=== PATIENT | male | born 1975 | race Caucasian/White ===

== ENCOUNTER 2021-06-18 15:38 | Emergency (ER) | payer BC, SELFPAY ==
[2021-06-18 15:39] VITALS: BP 135/96; PULSE 112; RESP 26; TEMP 38.4; O2SAT 95; BMI 47.7
[2021-06-18 15:40] VITALS: BMI 47.7
--- NOTE | 2021-06-18 15:41 | XR_ITS ---
PROCEDURE: XR CHEST PORTABLE CLINICAL HISTORY: SOB COMPARISON: No exams were available for comparison FINDINGS: There are low lung volumes. There is mild cardiomegaly without failure. Faint increased density is present in right mid to lower lung laterally some of which may be due to overlying ribs and chest wall. Cannot exclude patchy area of infiltrate. Upright PA and lateral chest may provide further evaluation. No acute bony abnormalities. IMPRESSION: Low lung volumes with possible right sided pneumonia Dictated by: Preston Acosta MD 06/18/2021 16:04 Preston Acosta MD in [place] 06/18/2021 16:04
--- NOTE | 2021-06-18 15:52 | [facility].EDGENADL ---
ED Disposition Clinical Impression: COVID Disposition: Home, Self-Care Condition on Discharge: Good Instructions: DI for COVID-19 (Suspected or Confirmed ) Additional Instructions: Antibiotic as directed. Anticipate a phone call to establish care appointment for antibody infusion. Follow-up with PCP in 2 to 3 days. Return to emergency department chest pain, shortness of breath. Prescriptions: Azithromycin [Zithromax 250mg tab] 250 mg PO DIRECTED #6 tab Transmission Status: Pending to [facility] Referrals: Provider,Referral, [Primary Care Provider] - 3 days Time of Disposition: 16:57 - Critical Care Critical Care Time: No Attestation: On 06/18/21, the high probability of a clinically significant, sudden or life threatening deterioration of the following system(s) required my full and direct attention, intervention and personal management. The time I documented below is in addition to time spent performing reported procedures but includes the following listed in this critical care notation. Medical Decision Making - Medical Records Medical records reviewed: Yes: I reviewed the patient's medical records. - Shahid Inquiry Pt receiving controlled substance: No Vital Signs: 06/18/21 15:39 Temperature 101.1 F H Temperature Source Oral Pulse Rate [Radial] 112 H Respiratory Rate 26 H Blood Pressure [Right Radial Artery] 135/96 H Blood Pressure Mean [Right Radial Artery] 109 Blood Pressure Position [Right Radial Artery] Sitting 02 Sat by Pulse Oximetry 95 Oxygen Delivery Method Room Air - Lab Data Lab results reviewed: Yes: I reviewed the patient's lab results. Lab Results 06/18/21 15:54: WBC 3.9 L, RBC 5.34, Hgb 15.3, Hct 46.0, MCV 86.1, MCH 28.6, MCHC 33.2, RDW 13.8, Plt Count 203, MPV 9.0, Neut % (Auto) 69.5, Lymph % (Auto) 20.4, [place] % (Auto) 8.3, Eos % (Auto) 0.4, Baso % (Auto) 1.4, Neut # (Auto) 2.7, Lymph # (Auto) 0.8, [place] # (Auto) 0.3, Eos # (Auto) 0.0, Baso # (Auto) 0.1 06/18/21 15:54: Sodium 137, Potassium 3.6, Chloride 101, Carbon Dioxide 31 H, Anion Gap 8.6, BUN 10, Creatinine 0.80, Estimated Creat Clear 106, Estimated GFR 103, Est GFR ( Amer) 125, Glucose 120 H, Calcium 8.2 L, Total Bilirubin 1.1, AST 121 H, ALT 77, Alkaline Phosphatase 165 H, Troponin I < 0.01, Total Protein 6.8, Albumin 3.6, Globulin 3.2, Albumin/Globulin Ratio 1.1 Result diagrams: 06/18/21 15:54 06/18/21 15:54 Orders (Tests/Meds): ED MEDICATIONS Discontinued Medications Generic Name Dose Route Start Last Admin Trade Name Freq PRN Reason Stop Dose Admin Acetaminophen 1,000 mg 06/18/21 15:42 06/18/21 15:57 Acetaminophen 500mg Tab PO 06/18/21 15:43 1,000 mg ONCE ONE Administration Sodium Chloride 1,000 mls @ 999 mls/hr 06/18/21 15:45 06/18/21 15:57 Sod Chlor 0.9% 1000ml Bag IV 06/18/21 16:45 999 mls/hr .[id number] WARREN Administration ORDERS Category Date Time Status Troponin I Q3H Lab 06/18/21 18:45 Ordered Troponin I Q3H Lab 06/18/21 21:45 Ordered - Radiology Data #1 Image(s): Chest Image Reviewed: Yes I have reviewed radiologist's interpretation Preliminary Findings: Abnormal Possible right-sided pneumonia Medical Decision Narrative: 46yo M evaluated for Covid. Patient no acute distress on initial evaluation. Sickle exam is unremarkable. Laboratory studies are consistent with Covid and that the patient has leukopenia, mild increase in liver enzymes. Chest x-ray shows possible right-sided pneumonia. We will go and cover the patient with azithromycin at this time for atypical/viral pneumonia. Discussed monoclonal antibody infusion with the patient at bedside. He is interested in therapy. We will schedule for patient per nursing. General Adult HPI - General Chief complaint: Shortness of Breath/Dyspnea Stated complaint: SOB Time Seen by Provider: 06/18/21 15:52 Mode of Arrival: Ambulatory - History of Present Illness HPI narrative: 46y
--- NOTE | 2021-06-18 15:55 | PC.NURSE ---
pt had cxr portable
[2021-06-18 16:05] LABS: Basophils # 0.1 K/mm3 (0-0.2); Basophils % 1.4 % (0.1-2.0); Eosinophils % 0.4 % (0.1-12.0); Hemoglobin 15.3 g/dL (14.1-18.0); Lymphocytes # 0.8 K/mm3 (0.7-4.5); Lymphocytes % 20.4 % (10-50); Mean Corpuscular HGB Conc 33.2 g/dL (31.8-35.4); Mean Corpuscular Hemoglobin 28.6 pg (27.0-31.2); Mean Corpuscular Volume 86.1 fl (80-94); Monocytes # 0.3 K/mm3 (0.1-1.0); Monocytes % 8.3 % (1.7-9.3); Neutrophils # 2.7 K/mm3 (1.8-7.8); Neutrophils % 69.5 % (37.0-80.0); Platelet Count 203 K/mm3 (142-424); Red Blood Count 5.34 M/mm3 (4.60-6.20); Red Cell Distribution Width 13.8 % (11.5-17.5); White Blood Count 3.9 K/mm3 (4.8-10.8)
[2021-06-18 16:12] LABS: Alanine Aminotransferase 77 U/L (12-78); Albumin Level 3.6 g/dl (3.5-5.0); Albumin/Globulin Ratio 1.1 (1.1-1.8); Alkaline Phosphatase 165 U/L (38-126); Anion Gap 8.6 mEq/L (5-15); Aspartate Amino Transferase 121 U/L (17-59); Bilirubin,Total 1.1 mg/dl (0.2-1.3); Blood Urea Nitrogen 10 mg/dl (9-20); Calcium 8.2 mg/dl (8.4-10.2); Carbon Dioxide 31 mmol/L (22.0-30.0); Chloride 101 mmol/L (98-107); Creatinine Clearance Estimated 106 mL/min (50-200); Estimated Glomerular Filt Rate 103 ml/min (>60); GFR (African American) 125 ML/MIN (>60); Globulin 3.2 g/dL (1.3-3.2); Glucose 120 mg/dl (74-100); Potassium 3.6 mmoL/L (3.5-5.1); Sodium 137 mmol/L (136-145); Total Protein,Serum 6.8 g/dl (6.3-8.2)
[2021-06-18 16:24] LABS: Troponin I < 0.01 ng/ml (0.00-0.034)
[2021-06-18 17:00] VITALS: BP 157/107; PULSE 105; O2SAT 92
[2021-06-18 17:46] VITALS: BP 157/107; PULSE 105; RESP 20; TEMP 38.4; O2SAT 95
== END 2021-06-18 17:49 | disposition home or self-care (01) ==
PROVIDERS: Emergency Provider Family Medicine
DX: U07.1 COVID-19 (principal)
CPT/HCPCS: 71045; 80053; 84484; 85025; 96365; 99282

== ENCOUNTER 2021-06-19 09:39 | Outpatient (CLI) | payer BC, SELFPAY ==
[2021-06-19] VITALS (7 sets, daily range): BP systolic 113–124; BP diastolic 74–82; PULSE 88–99; RESP 14–18; TEMP 37.2; O2SAT 90–92
== END 2021-06-19 12:05 | disposition home or self-care (01) ==
LOC: INF 09:44
PROVIDERS: PCP Family Medicine; Visit Provider Family Medicine
DX: U07.1 COVID-19 (principal); Z23 Encounter for immunization
CPT/HCPCS: 96365